=== PATIENT | female | born 1990 | race Caucasian/White ===

== ENCOUNTER 2016-08-29 09:33 | Emergency (ER) | payer MEDICAID ==
[~2016-08-29] VITALS: Ht 160 cm; Wt 74.8 kg
[2016-08-29 09:46] VITALS: BP 102/65
--- NOTE | 2016-08-29 11:08 | NUR ---
Dr. Vega evaluating patient at bedside.
--- NOTE | 2016-08-29 11:17 | NUR ---
26/F TO ED WITH C/O VAGINAL SPOTTING X1 DAY WITH CRAMPING X4 DAYS. PT STATES SHE IS 10 WEEKS PREG. DENIES PAIN AT THIS TIME. DENIES N/V/D. LUNGS CLEAR BILAT. HR EVEN AND REGULAR. AAOX4. VSS. NO SIGNS OF DISTRESS.
[2016-08-29 11:35] LABS: BILIRUBIN,URINE NEGATIVE (NEGATIVE); BLOOD, URINE TRACE-I (NEGATIVE); COLOR,URINE YELLOW (YELLOW); PROTEIN,URINE NEGATIVE (NEGATIVE); UGLUCOSE NEGATIVE (NEGATIVE); UROBILINOGEN,URINE 0.2 EU/dL (0.2 - 1)
[2016-08-29 11:36] LABS: EOSINOPHILS # (AUTO) 0.1 K/uL (0-0.4); EOSINOPHILS % (AUTO) 0.6 % (0.0-4.0); HEMATOCRIT 37.4 % (36-48); HEMOGLOBIN 12.1 g/dL (12.0-16.0); LYMPHOCYTES # (AUTO) 1.3 K/uL (2.5-16.5); LYMPHOCYTES % (AUTO) 12.6 % (20.5-51.1); MEAN CORPUSCULAR HEMOGLOBIN 27 pg (27-31); MEAN CORPUSCULAR HGB CONC 32 g/dL (33-37); MEAN CORPUSCULAR VOLUME 85 fL (80-94); MONOCYTES # (AUTO) 0.6 K/uL (0.8-1.0); MONOCYTES % (AUTO) 6.2 % (1.7-9.3); NEUTROPHILS # (AUTO) 8.1 K/uL (1.8-7.7); NEUTROPHILS % (AUTO) 80.6 % (42.2-75.2); PLATELET COUNT (AUTO) 176 K/uL (140-450); RED BLOOD CELL COUNT(AUTO) 4.42 MIL/uL (4.20-5.40); RED CELL DISTRIBUTION WIDTH 12.2 % (11.6-13.7); WHITE BLOOD COUNT (AUTO) 10.1 K/uL (4.8-10.8)
[2016-08-29 11:43] LABS: APPEARANCE,URINE HAZY (CLEAR)
[2016-08-29 11:44] LABS: RBC,URINE 0-5 (RARE) /HPF (0-5)
[2016-08-29 11:45] LABS: BACTERIA,URINE 1+ /HPF (None Seen); NITRITE, URINE POSITIVE (NEGATIVE); SQUAMOUS EPITHELIAL CELL,UR 0-3 (FEW) /LPF (0-3 (FEW)); YEAST,URINE Few /HPF (None Seen)
[2016-08-29 11:46] LABS: LEUKOCYTE ESTERASE ,URINE 2+ (NEGATIVE)
--- NOTE | 2016-08-29 12:24 | NUR ---
Dr. Vega at bedside with female senior qualitative researcher for pelvic exam.
--- NOTE | 2016-08-29 13:25 | NUR ---
Patient appears to be resting comfortably in bed. Vital Signs within normal limits. Respirations even and unlabored.
--- NOTE | 2016-08-29 14:05 | NUR ---
Dr. Vega re-evaluating patient at bedside.
[2016-08-29 14:09] VITALS: BP 102/65
--- NOTE | 2016-08-29 14:09 | NUR ---
Patient discharged with v/s stable. Written and verbal after care instructions given and explained. Patient alert, oriented and verbalized understanding of instructions. Ambulatory with steady gait. All questions addressed prior to discharge. ID band removed. Patient advised to follow up with PMD. Rx of CLOTRIMAZOLE given. Patient educated on indication of medication including possible reaction and side effects. Opportunity to ask questions provided and answered.
[2016-08-31 06:22] LABS: CHLAMYDIA TRACHOMATIS AMP DNA Negative (Negative)
== END 2016-08-29 14:09 | disposition home or self-care (01) ==
LOC: MED 09:33
PROC: BY49ZZZ Ultrasonography of First Trimester, Single Fetus (ICD-10-PCS; principal; 2016-08-29)
DX: O98.811 Other maternal infectious and parasitic diseases complicating pregnancy, first trimester (principal); B37.3 Candidiasis of vulva and vagina; O23.11 Infections of bladder in pregnancy, first trimester; Z3A.11 11 weeks gestation of pregnancy
CPT/HCPCS: 36415; 76801; 81001; 81025; 84702; 85025; 86900; 86901; 87086; 87210; 87491; 99285

== ENCOUNTER 2016-10-31 20:14 | Inpatient (IN) | payer MEDICAID ==
[~2016-10-31] VITALS: Ht 160 cm; Wt 75.7 kg
[2016-10-31 20:24] VITALS: BP 140/60
[2016-10-31 21:05] LABS: BILIRUBIN,URINE NEGATIVE (NEGATIVE); BLOOD, URINE TRACE-I (NEGATIVE); COLOR,URINE YELLOW (YELLOW); LEUKOCYTE ESTERASE ,URINE 3+ (NEGATIVE); NITRITE, URINE NEGATIVE (NEGATIVE); PH,URINE 6.5 (5.0-9.0); PROTEIN,URINE NEGATIVE (NEGATIVE); UGLUCOSE NEGATIVE (NEGATIVE)
[2016-10-31 21:10] LABS: APPEARANCE,URINE CLOUDY (CLEAR)
[2016-10-31 21:26] LABS: BACTERIA,URINE 3+ /HPF (None Seen); RBC,URINE 0-5 (RARE) /HPF (0-5); SQUAMOUS EPITHELIAL CELL,UR FEW /LPF (0-3 (FEW)); WBC,URINE 20-60 /HPF (0-5)
[2016-10-31 21:33] LABS: BASOPHILS % (AUTO) 0.3 % (0.0-2.0); EOSINOPHILS # (AUTO) 0.2 K/uL (0-0.4); EOSINOPHILS % (AUTO) 2.1 % (0.0-4.0); HEMATOCRIT 37.7 % (36-48); HEMOGLOBIN 12.5 g/dL (12.0-16.0); LYMPHOCYTES # (AUTO) 1.3 K/uL (2.5-16.5); LYMPHOCYTES % (AUTO) 12.3 % (20.5-51.1); MEAN CORPUSCULAR HEMOGLOBIN 29 pg (27-31); MEAN CORPUSCULAR HGB CONC 33 g/dL (33-37); MEAN CORPUSCULAR VOLUME 88 fL (80-94); MONOCYTES # (AUTO) 0.7 K/uL (0.8-1.0); MONOCYTES % (AUTO) 6.4 % (1.7-9.3); NEUTROPHILS # (AUTO) 8.7 K/uL (1.8-7.7); NEUTROPHILS % (AUTO) 78.9 % (42.2-75.2); PLATELET COUNT (AUTO) 228 K/uL (140-450); RED BLOOD CELL COUNT(AUTO) 4.27 MIL/uL (4.20-5.40); RED CELL DISTRIBUTION WIDTH 13.1 % (11.6-13.7); WHITE BLOOD COUNT (AUTO) 10.9 K/uL (4.8-10.8)
[2016-10-31 21:49] LABS: ALBUMIN 3.1 g/dL (3.4-5.0); ANION GAP 12.9 (8-16); CALCIUM 8.9 mg/dL (8.5-10.1); CARBON DIOXIDE 28.4 mmol/L (21-32); CREATININE 0.5 mg/dL (0.6-1.3); POTASSIUM 3.3 mmol/L (3.5-5.1); TOTAL BILIRUBIN 0.6 mg/dL (0.0-1.0); TOTAL PROTEIN, SERUM 7.2 g/dL (6.4-8.2)
--- NOTE | 2016-10-31 22:00 | NUR ---
TO ER BED 7
--- NOTE | 2016-10-31 22:05 | NUR ---
PT IS 26/F BIB SELF TO ED WITH C/O ABD PAIN X 2 WEEKS INTERMITTENTLY WITH N/V, 20 WEEKS. DENIES D; SKIN IS PINK/WARM/DRY; AAOX4 WITH EVEN AND STEADY GAIT; LUNGS CLEAR BL; HR EVEN AND REGULAR; PT DENIES ANY FEVER, CP, SOB, OR COUGH AT THIS TIME; PATIENT STATES PAIN OF 8/10 AT THIS TIME; VSS; PATIENT POSITIONED FOR COMFORT; HOB ELEVATED; BEDRAILS UP X2; BED DOWN. ER MD MADE AWARE OF PT STATUS.
[2016-10-31] MEDS ORDERED: ACETAMINOPHEN EXTRA STRENGTH 500 MG TAB PO ONE (22:50)
[2016-10-31] MEDS ORDERED: cefTRIAXone 1,000 MG VIAL ONE (22:59)
[2016-10-31] MEDS ORDERED: NACL 0.9% 1,000 ML IV ONE (23:25)
[2016-10-31] MEDS ORDERED: ONDANSETRON 4 MG/2 ML VIAL IVP ONE (23:25)
[2016-10-31] MEDS ORDERED: MORPHINE SULFATE 2 MG/ML SYR IVP ONE (23:45)
--- NOTE | 2016-11-01 00:05 | NUR ---
PT RESTING IN BED. NO SOB NOTED. WILL CONTINUE TO MONITOR.
--- NOTE | 2016-11-01 00:05 | NUR ---
IVP PAIN MEDS GIVEN-NADR AT THIS TIME. PAIN POST MEDS 09/12. ER MD NOTIFTED.
--- NOTE | 2016-11-01 00:12 | NUR ---
PT HAVING US DONE AT BEDSIDE
--- NOTE | 2016-11-01 00:56 | NUR ---
Patient will be admitted to care of DR FENG. Admited to TELE. Will go to room 120A. Belongings list completed. Report to CRISTHIAN FIGUEROA.
[2016-11-01 01:09] LABS: FREE T4 (FREE THYROXINE) 0.98 ng/dL (0.76-1.46); THYROID STIMULATING HORMONE 1.76 uIU/mL (0.34-3.76)
[2016-11-01] MEDS: NACL 0.9% 1,000 ML IV SCH ×2 (01:56→15:01)
[2016-11-01] MEDS ORDERED: POTASSIUM CHLORIDE 10 MEQ TABER PO SCH ×2 (02:00→08:00)
--- NOTE | 2016-11-01 02:30 | NUR ---
ADMITTED 26 Y.O.F. FROM ER.PLACED ON BED.ORIENTED TO ROOM.CALL SYSTEM EXPLAINED AND IN REACH.TELE.APPLIED AND SHOWING SR.INITIAL ASSESSMENT DONE.PLAN OF CARE DISCUSSED WITH PT.SHE VERBALIZED UNDERSTANDING.PT IS AWAKE,ALERT AND ORIENTED.RESP.UNLABORED IN RA.LUNGS CLEAR.SL PATENT IN RT.AC W/#20 G W/O REDNESS OR EDEMA AT SITE.DENIED ANY PAIN AT TIME OF ADMISSION.WILL CONTINUE MONITORING.
--- NOTE | 2016-11-01 02:52 | NUR ---
IVF OF NS AT 80ML/H STARTED AND INFUSING WELL.K DUR 20MEQ PO GIVEN.PT TOLERATED WELL.
[2016-11-01 04:00] VITALS: BP 104/58
--- NOTE | 2016-11-01 04:15 | NUR ---
SLEEPING W/O S/S OF ANY DISTRESS.IVF IS IN PROGRESS.
[2016-11-01 06:18] LABS: BASOPHILS # (AUTO) 0.1 K/uL (0.00-0.22); BASOPHILS % (AUTO) 0.8 % (0.0-2.0); EOSINOPHILS # (AUTO) 0.1 K/uL (0-0.4); EOSINOPHILS % (AUTO) 1.3 % (0.0-4.0); HEMATOCRIT 34.4 % (36-48); HEMOGLOBIN 11.4 g/dL (12.0-16.0); LYMPHOCYTES # (AUTO) 1.2 K/uL (2.5-16.5); LYMPHOCYTES % (AUTO) 12.5 % (20.5-51.1); MEAN CORPUSCULAR HEMOGLOBIN 29 pg (27-31); MEAN CORPUSCULAR HGB CONC 33 g/dL (33-37); MEAN CORPUSCULAR VOLUME 88 fL (80-94); MONOCYTES # (AUTO) 0.5 K/uL (0.8-1.0); MONOCYTES % (AUTO) 5.3 % (1.7-9.3); NEUTROPHILS # (AUTO) 7.6 K/uL (1.8-7.7); NEUTROPHILS % (AUTO) 80.1 % (42.2-75.2); PLATELET COUNT (AUTO) 212 K/uL (140-450); RED BLOOD CELL COUNT(AUTO) 3.92 MIL/uL (4.20-5.40); RED CELL DISTRIBUTION WIDTH 12.9 % (11.6-13.7); WHITE BLOOD COUNT (AUTO) 9.5 K/uL (4.8-10.8)
--- NOTE | 2016-11-01 06:25 | NUR ---
PT STATED WHEN SHE WENT TO BATHROOM WHEN SHE CLEANED HERSELF HAD BLOOD ON TOILET PAPER.HAS NO C/O PAIN AT THIS TIME.TOLD PT NEXT TIME CALL ME TO LOOK AT THE BLOODY TOILET PAPER.
[2016-11-01 06:29] LABS: MAGNESIUM 1.7 mg/dL (1.8-2.4); PHOSPHORUS 3.4 mg/dL (2.5-4.9)
[2016-11-01 06:37] LABS: ANION GAP 12.8 (8-16); CALCIUM 7.9 mg/dL (8.5-10.1); CARBON DIOXIDE 24.6 mmol/L (21-32); CREATININE 0.5 mg/dL (0.6-1.3); POTASSIUM 3.4 mmol/L (3.5-5.1)
--- NOTE | 2016-11-01 07:00 | NUR ---
RECEIVED REPORT FROM NIGHT NURSE. PT IS AAOX4, ON ROOM AIR, IV TO RIGHT AC 20G INFUSING WELL, SKIN INTACT, INITIAL ASSESSMENT COMPLETED, PT REPORTS SMALL SPOT OF BLOOD ON TOILET PAPER WHEN SHE WENT TO THE BATHROOM BUT IT HAS DECREASE FROM EARLIER. REVIEWED PLAN OF CARE WITH PT, PT VERBALIZED UNDERSTANDING, ALL SAFETY PRECAUTIONS MET. CALL LIGHT WITHIN REACH. WILL CONTINUE TO MONITOR.
[2016-11-01 08:00] VITALS: BP 96/60
[2016-11-01] MEDS ORDERED: MAG SULF 2000 MG/WATER PREMIX 50 ML IV SCH (08:00)
[2016-11-01] MEDS: MULTIVITAMIN/MINERALS 1 TAB PO SCH (08:30)
--- NOTE | 2016-11-01 08:38 | NUR ---
DUE MEDICATIONS GIVEN, PT TOLERATED WELL. ALL NEEDS MET. CALL LIGHT WITHIN REACH. WILL CONTINUE TO MONITOR.
--- NOTE | 2016-11-01 10:10 | NUR ---
PATIENT HAS BEEN SCREENED AND CATEGORIZED LOW NUTRITION RISK. PATIENT WILL BE SEEN WITHIN 7 DAYS OF ADMISSION. 11/07/[address]
--- NOTE | 2016-11-01 10:43 | NUR ---
PT CURRENTLY SLEEPING, NO S/S OF DISTRESS NOTED. CALL LIGHT WITHIN REACH. WILL CONTINUE TO MONITOR.
[2016-11-01 12:00] VITALS: BP 107/108
[2016-11-01] MEDS: ACETAMINOPHEN 325 MG TAB PO PRN ×2 (12:37→20:40)
--- NOTE | 2016-11-01 13:30 | NUR ---
PT CURRENTLY SLEEPING, FAMILY MEMBER AT BEDSIDE. WILL CONTINUE TO MONITOR.
[2016-11-01 13:44] LABS: AMPHETAMINE, URINE NEG. ng/ml (NEG <=1000); BARBITURATE, URINE NEG. ng/ml (NEG <=200); BENZODIAZEPINE, URINE NEG. ng/mL (NEG <=200); CANNABINOID, URINE NEG. ng/mL (NEG <=50); COCAINE, URINE NEG. ng/mL (NEG <=300); OPIATE, URINE NEG. ng/mL (NEG <=2000); PHENCYCLIDINE SCREEN,URINE NEG. ng/mL (NEG <=25)
--- NOTE | 2016-11-01 14:20 | NUR ---
HEART TONE OF 132 OBTAINED BY L AND D NURSE AT THIS TIME.
[2016-11-01 16:00] VITALS: BP 95/62
--- NOTE | 2016-11-01 16:35 | NUR ---
PT CURRENTLY AWAKE, NO S/S OF DISTRESS OR DISCOMFORT NOTED. ALL NEEDS MET. CALL LIGHT WITHIN RAECH. WILL CONTINUE TO MONITOR.
--- NOTE | 2016-11-01 18:37 | NUR ---
ASSISTED PT TO RESTROOM AND BACK TO BED. ALL NEEDS MET. CALL LIGHT WITHIN REACH. WILL CONTINUE TO MONITOR. FAMILY MEMBER AT BEDSIDE.
--- NOTE | 2016-11-01 19:05 | NUR ---
ENDORSED PLAN OF CARE TO NIGHT NURSE, PT IN STABLE CONDITION.
--- NOTE | 2016-11-01 19:28 | NUR ---
RECEIVED FROM AM RN IN BED AWAKE AND SITTING UP USING PHONE. NO PAIN AT THIS TIME . CARE PLANS FOR THE NIGHT DISCUSSED WITH HIM , CALL LIGHT WITH IN REACH AND RAPID RESPONSE DISCUSSED WITH HIM. ENCOURAGED TO USE CALL LIGHT FOR ANY HELP SHE MAY NEED OR IF IN PAIN. IVF SITE NO INFILTRATION NOTED. VERBALIZES WELL. AFEBRILE.
[2016-11-01 20:58] VITALS: BP 116/76
--- NOTE | 2016-11-01 21:01 | NUR ---
PT. EATING DINNER BROUGHT IN BY FROM OUTSIDE. PT. VERBALIZING WELL. AFEBRILE AND GOOD AFFECT. NO SOB. MEDICATED WITH TYLENOL EARLIER RT C/O HEADACHE. PROVOIDED WITH CRANBERRY JUICE AND CUP OF ICE REQUESTED. CALL LIGHT WITH IN REACH AND PT. A/O X 4. ROM X 4. GOES BRP BY HERSELF. INDEPENDENT.
[2016-11-02] MEDS: NACL 0.9% 1,000 ML IV SCH (00:44)
--- NOTE | 2016-11-02 00:53 | NUR ---
HEART TONE CHECKED 147. MOTHER/PT. DENIES ANY PAIN. BEEN SLEEPING WELL. WAKES UP EASILY WHEN TOUCHED. ALERT AND ORIENTED. ON TELEMETRY MONITORING. NSR.
[2016-11-02 00:54] VITALS: BP 114/72
--- NOTE | 2016-11-02 02:23 | NUR ---
PT. SLEEPING WELL. CALL LIGHT WITH IN REACH . A/O X 4. R OM X 4. TELEMETRY MONITORING.
--- NOTE | 2016-11-02 04:00 | NUR ---
SLEEPING. NO RESTLESSNESS NOTED. MADE SURE CALL LIGHT WITH IN REACH. TELEMETRY MONITORING.
[2016-11-02 04:27] VITALS: BP 95/51
[2016-11-02 06:18] LABS: BASOPHILS # (AUTO) 0.1 K/uL (0.00-0.22); BASOPHILS % (AUTO) 0.7 % (0.0-2.0); EOSINOPHILS # (AUTO) 0.1 K/uL (0-0.4); EOSINOPHILS % (AUTO) 1.1 % (0.0-4.0); HEMATOCRIT 33.2 % (36-48); HEMOGLOBIN 10.9 g/dL (12.0-16.0); LYMPHOCYTES # (AUTO) 1.4 K/uL (2.5-16.5); LYMPHOCYTES % (AUTO) 15.7 % (20.5-51.1); MEAN CORPUSCULAR HEMOGLOBIN 29 pg (27-31); MEAN CORPUSCULAR HGB CONC 33 g/dL (33-37); MEAN CORPUSCULAR VOLUME 87 fL (80-94); MONOCYTES # (AUTO) 0.5 K/uL (0.8-1.0); MONOCYTES % (AUTO) 5.7 % (1.7-9.3); NEUTROPHILS # (AUTO) 6.9 K/uL (1.8-7.7); NEUTROPHILS % (AUTO) 76.8 % (42.2-75.2); PLATELET COUNT (AUTO) 198 K/uL (140-450); RED BLOOD CELL COUNT(AUTO) 3.79 MIL/uL (4.20-5.40); RED CELL DISTRIBUTION WIDTH 12.9 % (11.6-13.7)
[2016-11-02 06:42] LABS: ANION GAP 10.6 (8-16); CALCIUM 7.8 mg/dL (8.5-10.1); CARBON DIOXIDE 26.1 mmol/L (21-32); CREATININE 0.5 mg/dL (0.6-1.3); POTASSIUM 3.7 mmol/L (3.5-5.1)
[2016-11-02 06:56] LABS: MAGNESIUM 1.7 mg/dL (1.8-2.4)
--- NOTE | 2016-11-02 07:30 | NUR ---
PT. ENDORSED TO THE NEXT RN FOR CONTINUITY OF CARE. AWAKE AND ALERT. NO SOB. VERBALIZES WELL. SLEPT WELL THIS SHIFT.
--- NOTE | 2016-11-02 07:30 | NUR ---
REPORT RECEIVED FROM THREAD DRAWER, PT SLEEPING QUIETLY IN NAD, RESP EVEN UNLABORED ON ROOM AIR, AROUSED EASILY BY VOICE, PLAN OF CARE REVIEWED, PT DENIES PAIN OR DISCOMFORT, CALL HERNANDEZ WITHIN REACH, BED LOCKED IN LOW POSITION, SIDE RAILS UP. WILL CONTINUE TO MONITOR.
[2016-11-02 08:00] VITALS: BP 106/59
[2016-11-02 08:24] LABS: HEMOGLOBIN A1C 4.8 % (4.8-5.6); T4 (THYROXINE) 9.4 ug/dL (4.5-12.0)
[2016-11-02] MEDS ORDERED: MAG SULF 2000 MG/WATER PREMIX 50 ML IV SCH (08:30)
--- NOTE | 2016-11-02 09:20 | NUR ---
L&D NURSE AT BEDSIDE FOR FHT, 150BPM PER REPORT.
[2016-11-02] MEDS: MULTIVITAMIN/MINERALS 1 TAB PO SCH (09:21)
[2016-11-02 10:01] LABS: T3 UPTAKE < 15 % (24-39)
[2016-11-02 12:00] VITALS: BP 109/55
[2016-11-02] MEDS ORDERED: LORATADINE 10 MG TAB PO SCH (14:00)
[2016-11-02] MEDS ORDERED: NITR100C7 PO (14:32)
[2016-11-02] MEDS ORDERED: LORA10TA19 PO (14:32)
[2016-11-02 15:00] VITALS: BP 109/60
--- NOTE | 2016-11-02 15:00 | NUR ---
DISCHARGE INSTRUCTION GIVEN AND EXPLAINED TO PT, PT VERBALIZED FULL UNDERSTANDING, IV DC'D, CATH TIP INTACT, BLEEDING CONTROLLED, PT UP AMBULATING WELL WITH STEADY GAIT, PT AWAITING RIDE HOME
--- NOTE | 2016-11-02 15:30 | NUR ---
PT WHEELED OUT TO THE LOBBY. PT IS STABLE.
[2016-11-03] MEDS ORDERED: LORATADINE 10 MG TAB PO SCH (09:00)
== END 2016-11-02 15:30 | disposition home or self-care (01) | DRG 566 ==
LOC: MED 20:14 → MTU 11-01 00:39
PROVIDERS: ADMIT Family Medicine; ATTEND Family Medicine
DX: O23.02 Infections of kidney in pregnancy, second trimester (principal); E83.42 Hypomagnesemia; O26.892 Other specified pregnancy related conditions, second trimester; O46.92 Antepartum hemorrhage, unspecified, second trimester; E87.6 Hypokalemia; E78.5 Hyperlipidemia, unspecified; Z90.49 Acquired absence of other specified parts of digestive tract; Z3A.19 19 weeks gestation of pregnancy; Z28.21 Immunization not carried out because of patient refusal
CPT/HCPCS: 36415; 76770; 76805; 80048; 80053; 80305; 81001; 82150; 83036; 83690; 83735; 84100; 84436; 84439; 84443; 84479; 84703; 85025; 87081; 87086; 96361; 96365; 96375; 99285; J0696; J2270; J2405; J3475; J7030; J7060; Q0092

== ENCOUNTER 2019-04-06 03:15 | Inpatient (IN) | payer MEDICAID ==
[~2019-04-06] VITALS: Ht 160 cm; Wt 72.6 kg
[~2019-04-06 03:15] MED LIST: LORA10TA19 PO; NITR100C7 PO
[2019-04-06 03:30] VITALS: BP 135/82
--- NOTE | 2019-04-06 03:30 | NUR ---
TO BED #02 AMBULATORY
--- NOTE | 2019-04-06 03:40 | NUR ---
PT AMBULATED TO ER BED 02
--- NOTE | 2019-04-06 03:56 | NUR ---
28 Y/O FEMALE PRESENTS TO ED, C/O ABDOMINAL PAIN 03/14. PT STATES PAIN STARTED AT APPROXIMATELY 2100 LAST NIGHT; DOES NOT RADIATE. PT HAS EPISODES OF N/V, LAST TIME WAS BEFORE TRIAGE ASSESSMENT. PT UNABLE TO TOLERATE FOOD, STATES NOT HAVING THE URGE TO EAT. PT BS ACTIVE X4 QUADRANTS. PAIN ON PALPATION. ERMD AWARE. WILL CONTINUE TO MONITOR.
[2019-04-06] MEDS ORDERED: ALUMINUM HYD/MAG/SIMETHICONE 30 ML UDC PO ONE (04:15)
[2019-04-06] MEDS ORDERED: DICYCLOMINE HCL LIQUID 20 MG, ALUMINUM HYD/MAG/SIMETHICONE 30 ML, LIDOCAINE VISCOUS 2% ... PO ONE ×3 (04:15)
[2019-04-06] MEDS ORDERED: NACL 0.9% 1,000 ML IV ONE (04:15)
[2019-04-06] MEDS ORDERED: MORPHINE SULFATE 4 MG/ML SYR IVP ONE ×2 (04:50→05:35)
[2019-04-06] MEDS ORDERED: MORPHINE SULFATE 4 MG/ML SYR ONE (04:51)
[2019-04-06 04:57] LABS: HEMOGLOBIN 14.4 g/dL (12.0-16.0)
[2019-04-06 05:06] LABS: BASOPHILS % (AUTO) 0.2 % (0.0-2.0); EOSINOPHILS % (AUTO) 0.2 % (0.0-4.0); HEMATOCRIT 43.3 % (36-48); LYMPHOCYTES # (AUTO) 1.1 K/uL (2.5-16.5); LYMPHOCYTES % (AUTO) 11.3 % (20.5-51.1); MEAN CORPUSCULAR HEMOGLOBIN 28 pg (27-31); MEAN CORPUSCULAR HGB CONC 33 g/dL (33-37); MEAN CORPUSCULAR VOLUME 85.1 fL (80-94); MONOCYTES # (AUTO) 0.6 K/uL (0.8-1.0); MONOCYTES % (AUTO) 6.1 % (1.7-9.3); NEUTROPHILS % (AUTO) 82.2 % (42.2-75.2); PLATELET COUNT (AUTO) 266 K/uL (140-450); RED BLOOD CELL COUNT(AUTO) 5.09 MIL/uL (4.20-5.40); RED CELL DISTRIBUTION WIDTH 13.2 % (11.6-13.7); WHITE BLOOD COUNT (AUTO) 9.7 K/uL (4.8-10.8)
[2019-04-06 05:07] LABS: ANION GAP 16.5 (8-16); CARBON DIOXIDE 27.1 mmol/L (21-32); CREATININE 0.8 mg/dL (0.6-1.3); POTASSIUM 3.6 mmol/L (3.5-5.1)
[2019-04-06 05:09] LABS: ALBUMIN 4.3 g/dL (3.4-5.0); TOTAL BILIRUBIN 1.6 mg/dL (0.0-1.0)
[2019-04-06 05:14] LABS: APPEARANCE,URINE HAZY (CLEAR); BILIRUBIN,URINE 1+ (NEGATIVE); BLOOD, URINE NEGATIVE (NEGATIVE); COLOR,URINE YELLOW (YELLOW); LEUKOCYTE ESTERASE ,URINE NEGATIVE (NEGATIVE); NITRITE, URINE NEGATIVE (NEGATIVE); PH,URINE 8.5 (5.0-9.0); UGLUCOSE NEGATIVE (NEGATIVE)
[2019-04-06 05:24] LABS: RBC,URINE 0-5 /HPF (0-5); WBC,URINE 0-5 /HPF (0-5)
[2019-04-06] MEDS ORDERED: METOCLOPRAMIDE 10 MG/2 ML INJ VIAL IVP ONE (05:35)
--- NOTE | 2019-04-06 05:45 | NUR ---
PT HAD ONE EPISODE OF VOMITING. ERMD MADE AWARE. WILL CONTINUE TO MONITOR.
--- NOTE | 2019-04-06 06:15 | NUR ---
PT RETURNED FROM CT
[2019-04-06] MEDS ORDERED: ONDANSETRON 4 MG/2 ML VIAL IVP PRN (06:35)
[2019-04-06] MEDS ORDERED: HYDROcodone/APAP 7.5/325 MG 1 TAB PO PRN (06:35)
[2019-04-06] MEDS ORDERED: ACETAMINOPHEN 325 MG TAB PO PRN (06:35)
--- NOTE | 2019-04-06 07:15 | NUR ---
PT ADMITTED TO [facility] 105A. TRANSFERRED PT VIA GURNEY, STABLE CONDITION. REPORT GIVEN TO KITA MORROW. PT CARE TRANSFERRED TO RECEIVING RN.
--- NOTE | 2019-04-06 07:15 | NUR ---
RECEIVED REPORT FROM ED NURSE ELIZABETH. PT IS AAOX4, COOPERATIVE. PT AMBULATORY. PT WITH ABD PAIN BUT MEDICATED IN ED WITH MORPHINE @0556. WILL GIVE ANOTHER DOSE WHEN DUE. PT AWARE AND VERBALIZES UNDERSTANDING. PT SKIN IS INTACT. IV IN THE LEFT AC 20G TO INFUSE NS @150ML/HR. EXPLAINED POC TO PT AND PT VERBALIZED UNDERSTANDING. PT SO AT BEDSIDE. WILL ROUND FREQUENTLY ON PT. BED IN LOW POSITION, CALL LIGHT WITHIN REACH.
[2019-04-06] MEDS ORDERED: MORPHINE SULFATE 2 MG/ML SYR IVP PRN (07:35)
[2019-04-06 08:00] VITALS: BP 114/74
[2019-04-06] MEDS: NACL 0.9% 1,000 ML IV SCH ×3 (08:34→19:55)
[2019-04-06] MEDS: DOCUSATE SODIUM 100 MG GELCAP PO SCH ×2 (09:00→22:16)
--- NOTE | 2019-04-06 09:24 | NUR ---
MORNING MEDS ADMINISTERED. PT TOLERATED WELL. ZOFRAN ALSO GIVEN FOR N/V EPISODES. ALL NEEDS MET. WILL CONTINUE TO ROUND FREQUENTLY ON PT. BED IN LOW POSITION, CALL LIGHT WITHIN REACH.
--- NOTE | 2019-04-06 10:57 | NUR ---
ADMINISTERED IV MORPHINE FOR ABD PAIN OF 9/10. PT TOLERATED WELL. WILL CONTINUE TO ROUND FREQUENTLY ON PT.
[2019-04-06 11:31] LABS: PROTHROMBIN TIME 9.5 secs (10.8-13.4)
--- NOTE | 2019-04-06 11:38 | NUR ---
PT RESTING IN BED. ALL NEEDS MET. WILL CONTINUE TO ROUND FREQUENTLY ON PT. BED IN LOW POSITION, CALL LIGHT WITHIN REACH.
[2019-04-06 11:43] LABS: CHOL/HDL RATIO 3.1 (1-4.5); FREE T4 (FREE THYROXINE) 1.31 ng/dL (0.76-1.46); PHOSPHORUS 1.9 mg/dL (2.5-4.9); THYROID STIMULATING HORMONE 1.48 uIU/mL (0.34-3.74)
--- NOTE | 2019-04-06 13:14 | NUR ---
PT RESTING IN BED. ALL NEEDS MET. PT STATES N/V BETTER. PAIN DECREASED. WILL CONTINUE TO ROUND FREQUENTLY ON PT.
[2019-04-06] MEDS: PIPERACILLIN/TAZOBACTAM 3.375 GM in DEXTROSE 5% 50 ML IV SCH ×2 (13:28→22:16)
--- NOTE | 2019-04-06 15:26 | NUR ---
PT RESTING IN BED. ALL NEEDS MET. PT DENIES N/V OR PAIN. WILL CONTINUE TO ROUND FREQUENTLY ON PT. BED IN LOW POSITION, CALL LIGHT WITHIN REACH.
[2019-04-06 16:00] VITALS: BP 103/57
--- NOTE | 2019-04-06 17:16 | NUR ---
PT SLEEPING. ALL NEEDS MET.
--- NOTE | 2019-04-06 19:34 | NUR ---
ENDORSED PT TO SCIENTIFIC INFORMATICS LEADER FOR CONTINUITY OF CARE. PT IN STABLE CONDITION AT THIS TIME.
[2019-04-06 23:36] VITALS: BP 103/43
[2019-04-07] MEDS: NACL 0.9% 1,000 ML IV SCH ×2 (01:01→09:15)
[2019-04-07 04:00] VITALS: BP 106/48
[2019-04-07] MEDS: PIPERACILLIN/TAZOBACTAM 3.375 GM in DEXTROSE 5% 50 ML IV SCH ×3 (05:30→21:12)
--- NOTE | 2019-04-07 07:10 | NUR ---
RECEIVED BEDSIDE REPORT FROM MARBLE CARVER NURSE. PT IS ASLEEP, NO S/S OF ACUTE DISTRESS. NO C/O PAIN. PT IS ON ROOM AIR, SKIN INTACT. IV SITE IS IN THE L AC 20 G, INFUSING NS 150 ML/HR. PT IS AMBULATORY AND ABLE TO MAKE NEEDS KNOWN. WILL CONTINUE TO MONITOR.
[2019-04-07 07:12] LABS: ALBUMIN 3.1 g/dL (3.4-5.0); ANION GAP 13.1 (8-16); CARBON DIOXIDE 25.6 mmol/L (21-32); CREATININE 0.6 mg/dL (0.6-1.3); MAGNESIUM 1.8 mg/dL (1.8-2.4); POTASSIUM 3.7 mmol/L (3.5-5.1); TOTAL BILIRUBIN 2.7 mg/dL (0.0-1.0)
[2019-04-07 07:19] LABS: BASOPHILS % (AUTO) 0.3 % (0.0-2.0); EOSINOPHILS # (AUTO) 0.1 K/uL (0-0.4); EOSINOPHILS % (AUTO) 1.2 % (0.0-4.0); HEMATOCRIT 36.2 % (36-48); HEMOGLOBIN 11.9 g/dL (12.0-16.0); LYMPHOCYTES # (AUTO) 1.2 K/uL (2.5-16.5); LYMPHOCYTES % (AUTO) 25.6 % (20.5-51.1); MEAN CORPUSCULAR HEMOGLOBIN 29 pg (27-31); MEAN CORPUSCULAR HGB CONC 33 g/dL (33-37); MEAN CORPUSCULAR VOLUME 86.8 fL (80-94); MONOCYTES # (AUTO) 0.4 K/uL (0.8-1.0); NEUTROPHILS # (AUTO) 2.9 K/uL (1.8-7.7); NEUTROPHILS % (AUTO) 63.9 % (42.2-75.2); PLATELET COUNT (AUTO) 218 K/uL (140-450); RED BLOOD CELL COUNT(AUTO) 4.17 MIL/uL (4.20-5.40); RED CELL DISTRIBUTION WIDTH 13.3 % (11.6-13.7); WHITE BLOOD COUNT (AUTO) 4.5 K/uL (4.8-10.8)
[2019-04-07 08:00] VITALS: BP 101/53
--- NOTE | 2019-04-07 08:37 | NUR ---
PATIENT HAS BEEN SCREENED AND CATEGORIZED MODERATE NUTRITION RISK. PATIENT WILL BE SEEN WITHIN 3-5 DAYS OF ADMISSION. 04/10/[address]
[2019-04-07] MEDS: DOCUSATE SODIUM 100 MG GELCAP PO SCH ×2 (09:10→21:00)
--- NOTE | 2019-04-07 09:14 | NUR ---
AM MED ADMINISTERED, PT TOLERATED WELL, PT ATE ABOUT 75% OF HER BREAKFAST.
[2019-04-07 10:22] LABS: HEPATITIS A ANTIBODY IGM Negative (Negative); HEPATITIS B CORE AB TOTAL Negative (Negative); HEPATITIS B SURFACE ANTIBODY Reactive (.); HEPATITIS B SURFACE ANTIGEN Negative (Negative)
--- NOTE | 2019-04-07 12:21 | NUR ---
ZOSYN INFUSING, PT TOLERATING WELL, FAMILY IS VISITING AT THE BEDSIDE.
--- NOTE | 2019-04-07 13:10 | NUR ---
DR TRENT TALKING TO PT ABOUT ERCP HE PLANS TO DO TOMORROW. FAMILY IS AT BEDSIDE.
[2019-04-07] MEDS: LACTATED RINGERS 1,000 ML IV SCH ×2 (13:25→19:40)
--- NOTE | 2019-04-07 13:28 | NUR ---
OBTAINED CONSENT FOR ERCP.
[2019-04-07 16:00] VITALS: BP 108/60
--- NOTE | 2019-04-07 16:00 | NUR ---
PT TAKING A SHOWER AT THIS TIME.
--- NOTE | 2019-04-07 17:09 | NUR ---
PT VISITING WITH HER FAMILY AT BEDSIDE. LR INFUSING 150 ML/HR PER MD ORDER.
--- NOTE | 2019-04-07 18:17 | NUR ---
IV DISLODGED. NEW IV INSERTED, R HAND 22 G.
--- NOTE | 2019-04-07 19:20 | NUR ---
ENDORSED PT TO PUMPER HELPER NURSE IN STABLE CONDITION.
[2019-04-07 22:23] VITALS: BP 103/58
[2019-04-08] MEDS: LACTATED RINGERS 1,000 ML IV SCH ×2 (01:55→08:53)
[2019-04-08] MEDS: PIPERACILLIN/TAZOBACTAM 3.375 GM in DEXTROSE 5% 50 ML IV SCH ×2 (04:59→13:05)
--- NOTE | 2019-04-08 07:05 | NUR ---
RECEIVED REPORT FROM SPORTS FITNESS AND WELLNESS DIRECTOR NURSE. PT AROUSABLE TO NAME, ORIENTED X4, NO C/O PAIN. IV ON RT HAND RUNNING IVF PER ORDER. RESPIRATIONS EVEN AND UNLABORED ON RA. ACTIVE BS, SOFT ABD. SKIN IS INTACT, WARM TO TOUCH. SAFETY MEASURES IN PLACE, CALL LIGHT WITHIN REACH. REVIEWED POC WITH PT, PT VERBALIZED UNDERSTANDING.
[2019-04-08 07:30] LABS: BASOPHILS % (AUTO) 0.3 % (0.0-2.0); EOSINOPHILS # (AUTO) 0.1 K/uL (0-0.4); EOSINOPHILS % (AUTO) 1.4 % (0.0-4.0); HEMATOCRIT 35.6 % (36-48); HEMOGLOBIN 11.7 g/dL (12.0-16.0); LYMPHOCYTES # (AUTO) 1.3 K/uL (2.5-16.5); LYMPHOCYTES % (AUTO) 28.1 % (20.5-51.1); MEAN CORPUSCULAR HEMOGLOBIN 29 pg (27-31); MEAN CORPUSCULAR HGB CONC 33 g/dL (33-37); MEAN CORPUSCULAR VOLUME 87.2 fL (80-94); MONOCYTES # (AUTO) 0.4 K/uL (0.8-1.0); MONOCYTES % (AUTO) 7.8 % (1.7-9.3); NEUTROPHILS % (AUTO) 62.4 % (42.2-75.2); PLATELET COUNT (AUTO) 213 K/uL (140-450); RED BLOOD CELL COUNT(AUTO) 4.08 MIL/uL (4.20-5.40); RED CELL DISTRIBUTION WIDTH 13.4 % (11.6-13.7); WHITE BLOOD COUNT (AUTO) 4.8 K/uL (4.8-10.8)
[2019-04-08 07:56] LABS: ALBUMIN 3.3 g/dL (3.4-5.0); ANION GAP 12.5 (8-16); CARBON DIOXIDE 26.4 mmol/L (21-32); CREATININE 0.6 mg/dL (0.6-1.3); MAGNESIUM 1.8 mg/dL (1.8-2.4); PHOSPHORUS 3.5 mg/dL (2.5-4.9); POTASSIUM 3.9 mmol/L (3.5-5.1); TOTAL BILIRUBIN 1.1 mg/dL (0.0-1.0)
[2019-04-08 08:00] VITALS: BP 106/67
[2019-04-08] MEDS: DOCUSATE SODIUM 100 MG GELCAP PO SCH (08:07)
--- NOTE | 2019-04-08 08:53 | NUR ---
ADMINISTERED COLACE PER ORDER, PT IS AWARE OF INDICATIONS AND POTENTIAL SIDE EFFECTS.
--- NOTE | 2019-04-08 10:55 | NUR ---
PT GIVEN GOWN TO CHANGE IN. PT TAKEN BY CRISTHIAN DE LA PAZ FOR PROCEDURE. PT HAS NO SIGNS OF DISTRESS AT THIS TIME.
[2019-04-08] MEDS ORDERED: fentaNYL 0.05 MG/ML VIAL ONE (11:01)
[2019-04-08] MEDS ORDERED: MIDAZOLAM 2 MG/2 ML VIAL ONE (11:01)
[2019-04-08] MEDS ORDERED: PROPOFOL 200 MG/20 ML VIAL IV ONE (11:40)
--- NOTE | 2019-04-08 12:53 | NUR ---
PT RETURNED FROM PROCEDURE. VSS, PT IS BRADYCARDIC WITH HR 55-58, PT HAS NO C/O PAIN. WILL CONTINUE TO MONITOR.
[2019-04-08 12:55] VITALS: BP 113/68
--- NOTE | 2019-04-08 14:08 | NUR ---
PT REFUSES TO HAVE FLU VACCINE, STATES "IT MAKES ME SICK". EXPLAINED RISKS AND BENEFITS BUT PT STILL REFUSES.
--- NOTE | 2019-04-08 14:30 | NUR ---
PT IS AWARE THAT SHE WILL BE DISCHARGE IF SHE TOLERATES FOOD.
--- NOTE | 2019-04-08 15:05 | NUR ---
PT STATES SHE DOES NOT HAVE ANY PAIN AT THIS TIME AFTER EATING LUNCH TRAY.
--- NOTE | 2019-04-08 15:45 | NUR ---
PT HAS BEEN DISCHARGED. ALL PAPERWORK SIGNED, ALL QUESTIONS ANSWERED. ALL BELONGINGS AND WORK EXCUSE NOTE IN PT POSSESSION. IV DISCONTINUED WITH CANNULA INTACT. WRISTBANDS REMOVED. PT REFUSED WHEELCHAIR, TRANSFERRED OUT OF UNIT WITH STEADY GAIT, RN AT SIDE. PT IS IN STABLE CONDITION.
== END 2019-04-08 15:45 | disposition home or self-care (01) | DRG 282 ==
LOC: MED 03:15 → MTU 06:35
PROVIDERS: ADMIT General Practice; ATTEND General Practice
PROC: BF141ZZ Fluoroscopy of Gallbladder, Bile Ducts and Pancreatic Ducts using Low Osmolar Contrast (ICD-10-PCS; 2019-04-08)
PROC: 0DB68ZX Excision of Stomach, Via Natural or Artificial Opening Endoscopic, Diagnostic (ICD-10-PCS; 2019-04-08)
PROC: 0F798ZZ Dilation of Common Bile Duct, Via Natural or Artificial Opening Endoscopic (ICD-10-PCS; principal; 2019-04-08 10:30)
DX: K85.10 Biliary acute pancreatitis without necrosis or infection (principal); E44.0 Moderate protein-calorie malnutrition; E66.3 Overweight; Z68.28 Body mass index [BMI] 28.0-28.9, adult; Z71.3 Dietary counseling and surveillance; Z90.49 Acquired absence of other specified parts of digestive tract; Z79.899 Other long term (current) drug therapy
CPT/HCPCS: 36415; 71045; 74330; 76705; 77003; 80053; 81001; 82150; 83036; 83690; 83735; 83880; 84100; 84439; 84443; 84484; 84703; 85025; 85610; 85730; 86677; 86704; 86706; 86708; 86709; 86803; 87340; 96361; 96374; 96375; 96376; 99285; J2250; J2270; J2405; J2543; J2704; J2765; J3010; J7030; J7060; J7120; Q0092; Q9967

== ENCOUNTER 2023-08-30 08:15 | Emergency (ER) | payer MEDICAID, OTHER ==
[~2023-08-30] VITALS: Ht 162.6 cm; Wt 71.8 kg
[2023-08-30 08:22] VITALS: BP 131/83; PULSE 53; RESP 16; TEMP 98; O2SAT 100
[2023-08-30] MEDS: KETOROLAC 30 MG/ML VIAL IVP ONE (09:16)
[2023-08-30] MEDS: ACETAMINOPHEN EXTRA STRENGTH 500 MG TAB PO ONE (10:20)
[2023-08-30 10:29] LABS: BASOPHILS % (AUTO) 0.3 % (0.0-2.0); EOSINOPHILS # (AUTO) 0.1 K/uL (0-0.4); EOSINOPHILS % (AUTO) 1.1 % (0.0-4.0); HEMATOCRIT 38.1 % (36-48); HEMOGLOBIN 12.9 g/dL (12.0-16.0); LYMPHOCYTES # (AUTO) 1.4 K/uL (2.5-16.5); LYMPHOCYTES % (AUTO) 29.3 % (20.5-51.1); MEAN CORPUSCULAR HEMOGLOBIN 29 pg (27-31); MEAN CORPUSCULAR HGB CONC 34 g/dL (33-37); MEAN CORPUSCULAR VOLUME 85.3 fL (80-94); MONOCYTES # (AUTO) 0.2 K/uL (0.8-1.0); NEUTROPHILS # (AUTO) 3.1 K/uL (1.8-7.7); NEUTROPHILS % (AUTO) 64.3 % (42.2-75.2); PLATELET COUNT (AUTO) 200 K/uL (140-450); RED BLOOD CELL COUNT(AUTO) 4.47 MIL/uL (4.20-5.40); RED CELL DISTRIBUTION WIDTH 13.5 % (11.6-13.7); WHITE BLOOD COUNT (AUTO) 4.8 K/uL (4.8-10.8)
[2023-08-30 10:38] LABS: CALCIUM 8.4 mg/dL (8.5-10.1); CARBON DIOXIDE 28.9 mmol/L (21-32); CREATININE 0.7 mg/dL (0.6-1.3); POTASSIUM 3.9 mmol/L (3.5-5.1)
[2023-08-30 10:49] LABS: BILIRUBIN,URINE 2+ (NEGATIVE); BLOOD, URINE 3+ (NEGATIVE); LEUKOCYTE ESTERASE ,URINE 1+ (NEGATIVE); NITRITE, URINE POSITIVE (NEGATIVE); PH,URINE 5.5 (5.0-9.0); PROTEIN,URINE 2+ (NEGATIVE); UGLUCOSE TRACE (NEGATIVE)
[2023-08-30 10:52] LABS: APPEARANCE,URINE BLOODY (CLEAR); COLOR,URINE RED (YELLOW)
[2023-08-30 10:55] LABS: RBC,URINE TOO NUMEROUS TO COUN /HPF (0-5)
[2023-08-30 10:57] LABS: SQUAMOUS EPITHELIAL CELL,UR 0-3 (FEW) /LPF (0-3 (FEW))
[2023-08-30 10:58] LABS: BACTERIA,URINE FEW /HPF (None Seen); ICTOTEST POSITIVE (NEGATIVE); WBC,URINE 0-5 /HPF (0-5)
[2023-08-30] MEDS ORDERED: NAPR-54 PO (11:08)
[2023-08-30] MEDS ORDERED: HYDR-5191 PO (11:08)
[2023-08-30 11:13] VITALS: BP 112/68; PULSE 49; RESP 16; TEMP 98; O2SAT 100
== END 2023-08-30 11:13 | disposition home or self-care (01) ==
LOC: MED 08:15
DX: N92.0 Excessive and frequent menstruation with regular cycle (principal); R03.0 Elevated blood-pressure reading, without diagnosis of hypertension; Z90.49 Acquired absence of other specified parts of digestive tract; Z88.6 Allergy status to analgesic agent
CPT/HCPCS: 36415; 76856; 80048; 81001; 81025; 85025; 87086; 93976; 96374; 99285; J1885; Q0092

== ENCOUNTER 2024-01-01 08:26 | Emergency (ER) | payer OTHER ==
[~2024-01-01] VITALS: Ht 162.6 cm; Wt 70.3 kg
[~2024-01-01 08:26] MED LIST changes: +HYDR-5071 PO; -LORA10TA19 PO; +NAPR-337 PO; -NITR100C7 PO
[2024-01-01 08:33] VITALS: BP 130/78; PULSE 86; RESP 16; TEMP 98.6; O2SAT 98
[2024-01-01] MEDS: ALUMINUM HYD/MAG/SIMETHICONE 30 ML UDC PO ONE (09:38)
[2024-01-01 09:50] LABS: BASOPHILS % (AUTO) 0.1 % (0.0-2.0); EOSINOPHILS % (AUTO) 0.3 % (0.0-4.0); HEMATOCRIT 38.3 % (36-48); HEMOGLOBIN 12.8 g/dL (12.0-16.0); LYMPHOCYTES # (AUTO) 0.9 K/uL (2.5-16.5); LYMPHOCYTES % (AUTO) 9.4 % (20.5-51.1); MEAN CORPUSCULAR HEMOGLOBIN 28 pg (27-31); MEAN CORPUSCULAR HGB CONC 33 g/dL (33-37); MEAN CORPUSCULAR VOLUME 84.8 fL (80-94); MONOCYTES # (AUTO) 0.6 K/uL (0.8-1.0); MONOCYTES % (AUTO) 6.3 % (1.7-9.3); NEUTROPHILS # (AUTO) 8.1 K/uL (1.8-7.7); NEUTROPHILS % (AUTO) 83.9 % (42.2-75.2); PLATELET COUNT (AUTO) 240 K/uL (140-450); RED BLOOD CELL COUNT(AUTO) 4.52 MIL/uL (4.20-5.40); WHITE BLOOD COUNT (AUTO) 9.6 K/uL (4.8-10.8)
[2024-01-01 09:55] LABS: APPEARANCE,URINE CLEAR (CLEAR); BILIRUBIN,URINE NEGATIVE (NEGATIVE); BLOOD, URINE 1+ (NEGATIVE); COLOR,URINE YELLOW (YELLOW); LEUKOCYTE ESTERASE ,URINE NEGATIVE (NEGATIVE); NITRITE, URINE NEGATIVE (NEGATIVE); PH,URINE 5.5 (5.0-9.0); PROTEIN,URINE NEGATIVE (NEGATIVE); UGLUCOSE NEGATIVE (NEGATIVE); UROBILINOGEN,URINE 0.2 EU/dL (0.2 - 1)
[2024-01-01 10:08] LABS: BACTERIA,URINE 1+ /HPF (None Seen); SQUAMOUS EPITHELIAL CELL,UR 4-10 (MOD) /LPF (0-3 (FEW)); WBC,URINE 0-5 /HPF (0-5)
[2024-01-01 10:09] LABS: CALCIUM OXALATE CRYSTALS,UR None Seen /HPF (None Seen); CYSTINE CRYSTALS,URINE None Seen /HPF (None Seen); MUCUS,URINE 3+ /LPF (None Seen); TRICHOMONAS,URINE None Seen /HPF (None Seen); WHITE BLOOD CELL CASTS,URINE None Seen /LPF (None Seen); YEAST,URINE None Seen /HPF (None Seen)
[2024-01-01 10:11] LABS: COARSE GRANULAR CASTS,URINE None Seen /LPF (None Seen); FATTY CASTS,URINE None Seen /LPF (None Seen); FINE GRANULAR CASTS,URINE None Seen /LPF (None Seen); HYALINE CASTS, URINE None Seen /LPF (None Seen); OTHER CRYSTALS,URINE None Seen /HPF (None Seen); RED BLOOD CELL CASTS,URINE None Seen /LPF (None Seen); TRIPLE PHOSPHATE CRYSTAL,UR None Seen /HPF (None Seen); URIC ACID CRYSTALS,URINE 0-10 /HPF (None Seen); URINE AMORPHOUS PHOSPHATES None Seen /HPF (None Seen); URINE AMORPHOUS URATE None Seen /HPF (None Seen); WAXY CASTS,URINE None Seen /LPF (None Seen)
[2024-01-01 10:34] LABS: CALCIUM 8.4 mg/dL (8.5-10.1); CREATININE 0.7 mg/dL (0.6-1.3)
[2024-01-01 10:37] LABS: ALBUMIN 3.7 g/dL (3.4-5.0); BILIRUBIN,DIRECT 0.1 mg/dL (0.0-0.3); TOTAL BILIRUBIN 0.4 mg/dL (0.0-1.0); TOTAL PROTEIN, SERUM 7.4 g/dL (6.4-8.2)
[2024-01-01 10:51] LABS: OTHER CASTS, URINE None Seen /LPF (None Seen)
[2024-01-01] MEDS ORDERED: SUCR1TAB56 PO (10:59)
[2024-01-01] MEDS ORDERED: OMEP20EC11 PO (10:59)
[2024-01-01] MEDS: KETOROLAC 30 MG/ML VIAL IM ONE (11:36)
[2024-01-01 11:46] VITALS: BP 119/88; PULSE 74; RESP 74; TEMP 98.2; O2SAT 100
== END 2024-01-01 11:40 | disposition home or self-care (01) ==
LOC: MED 08:26
DX: K29.70 Gastritis, unspecified, without bleeding (principal); Z90.49 Acquired absence of other specified parts of digestive tract; Z79.899 Other long term (current) drug therapy
CPT/HCPCS: 36415; 80048; 80076; 81001; 81025; 83690; 85025; 96372; 99283; J1885